=== PATIENT | male | born 1970 | race Caucasian/White ===

== ENCOUNTER → 2016-11-14 | Outpatient (CLI) | payer BC ==
--- NOTE | 2016-11-14 11:31 | EKG ---
[address] [address] Measurements Intervals [place] Rate: 65 P: 49 VA: 174 QRS: 56 QRSD: 107 T: 36 QT: 383 QTc: 395 Interpretive Statements SINUS RHYTHM VOLTAGE CRITERIA FOR LVH [MEETS CRITERIA IN ONE OF: R(aVL), S(V1), R(V5), R(V5/V6)+S(V1)] No previous ECG available for comparison Electronically Signed On 11-14-16 11:43:56 MST by Jose Love MD [email or web address]
[2016-11-14 11:39] LABS: HEMATOCRIT 42.3 % (42.0-52.0); HEMOGLOBIN 14.2 g/dL (14.0-18.0); MEAN CORPUSCULAR HEMOGLOBIN 32.2 PG (27-31); MEAN CORPUSCULAR HGB CONC 33.6 g/dL (33-37); MEAN PLATELET VOLUME 10.3 FL (7.4-12.2); RDW COEFFICIENT OF VARIATION 12.6 % (11.5-14.5); RED BLOOD COUNT 4.41 10^6/uL (4.70-6.10); WHITE BLOOD COUNT 6.13 10^3/uL (4.8-10.8)
[2016-11-14 11:52] LABS: ASPARTATE AMINO TRANSFERASE 26 IU/L (21-57); BILIRUBIN,TOTAL 0.4 mg/dL (0.3-1.2); BLOOD UREA NITROGEN 18 mg/dL (7-22); CALCIUM 9.1 mg/dL (8.7-10.7); CHLORIDE 106 meq/L (98-112); EST GLOMERULAR FILTRATION > 60 (>60 ml/min/1.73m(2)); GLUCOSE 83 mg/dL (78-110); POTASSIUM 4.2 meq/L (3.8-5.2); SODIUM 142 meq/L (135-145)
--- NOTE | 2016-11-14 14:31 | DI ---
PA /LATERAL CHEST X-RAY, 11/14/2016 11:44 AM : Clinical History: Respiratory pain. Previous Exam: None at this facility. There is no acute soft tissue or bony abnormality. Heart size is normal. Lungs are clear. Mediastinal structures are normal. There are no pulmonary nodules. 2 AP views and a lateral view are obtained. IMPRESSION: Normal chest x-ray.
== END ==
LOC: MOB LAB 11:08
PROVIDERS: ATTEND Physician Assistant Medical
DX: R07.1 Chest pain on breathing (principal); R53.83 Other fatigue; D53.9 Nutritional anemia, unspecified
CPT/HCPCS: 71020; 80053; 84484; 85027; 93005; 93010